=== PATIENT | female | born 1990 | race Caucasian/White ===

== ENCOUNTER → 2021-10-10 14:08 | Outpatient (CLI) | payer OTHER, MEDICAID, SELFPAY ==
[2021-10-10 15:13] LABS: Add Manual Diff / Slide Review NO; Basophils Absolute Auto 0 /uL (0-100); Basophils Percent Auto 0.4 % (0-2); Eosinophils Absolute Auto 500 /uL (0-450); Eosinophils Percent Auto 5.7 % (2-4); Hematocrit 38.2 % (36-46); Lymphocytes Absolute Auto 2300 /uL (1100-4500); Lymphocytes Percent Auto 28.9 % (25-40); Mean Corpuscular Hemoglobin 29.4 PG (26-34); Mean Corpuscular Volume 86.5 fL (80-100); Monocytes Absolute Auto 400 /uL (0-900); Monocytes Percent Auto 5.4 % (3-14); Neutrophils Absolute Auto 4700 /uL (1500-7000); Neutrophils Percent Auto 59.6 % (50-75); Platelet Count 269 X10^3/uL (150-400); Red Blood Cell Count 4.41 X10^6/uL (4.0-5.2); Red Cell Distribution Width 13.8 % (11.6-14.8); White Blood Cell Count 7.9 X10^3/uL (4.5-11.0)
[2021-10-10 16:08] LABS: TSH w/ Reflex to FT4 1.33 uIU/mL (0.47-4.68)
[2021-10-11 08:53] LABS: Varicella IgG Antibody 742 index (Immune >165)
[2021-10-13 04:18] LABS: HIV 1 & 2 Ab/Ag 4th Gen Combo NEGATIVE (NEGATIVE); Hep C Virus Ab w/Reflex Quant NEGATIVE s/c (NEGATIVE); Hepatitis B Surface Antigen NEGATIVE s/c (NEGATIVE)
[2021-10-30 15:19] LABS: RPR Screen Reactive
== END ==
PROVIDERS: Referring Provider Obstetrics & Gynecology; Visit Provider Obstetrics & Gynecology
DX: Z34.81 Encounter for supervision of other normal pregnancy, first trimester (principal); E03.9 Hypothyroidism, unspecified
CPT/HCPCS: 36415; 80055; 84443; 86787; 86803; 86850; 86900; 86901; 87389

== ENCOUNTER → 2021-11-06 16:43 | Outpatient (CLI) | payer OTHER, MEDICAID, SELFPAY ==
[2021-11-06 18:47] LABS: Appearance Urine UA CLOUDY; Bilirubin Urine UA NEGATIVE (NEGATIVE); Color Urine UA YELLOW; Glucose Urine UA NEGATIVE (Negative); Ketones Urine UA TRACE (NEGATIVE); Leukocyte Esterase Urine UA NEGATIVE (NEGATIVE); Nitrite Urine UA NEGATIVE (Negative); Occult Blood Urine UA NEGATIVE (Negative); Protein Urine UA 1+ (Negative); Specific Gravity Urine UA 1.025 (1.000-1.035)
== END ==
PROVIDERS: Referring Provider Obstetrics & Gynecology; Visit Provider Obstetrics & Gynecology
DX: Z34.81 Encounter for supervision of other normal pregnancy, first trimester (principal); Z3A.15 15 weeks gestation of pregnancy
CPT/HCPCS: 81003; 87086

== ENCOUNTER → 2021-12-09 12:35 | Outpatient (CLI) | payer OTHER, MEDICAID, SELFPAY ==
--- NOTE | 2021-12-09 12:36 | DI.US.S_ITS ---
PROCEDURE: US OB >= 14 WEEKS FETUS INDICATIONS: ANATOMY OUTSIDE/PRIOR DATING DATA: Last menstrual period (LMP): 07/22/2021. LMP-based estimated date of delivery (JASWANT): 04/28/2022. First dating scan (date and location): 09/19/2021. Estimated date of delivery (JASWANT) from first dating scan: 05/07/2022. TECHNIQUE: Real-time scanning was performed of the fetus, with image documentation and biometric measurements. Endovaginal scanning: No COMPARISON: None. FINDINGS: General: A single living intrauterine gestation is present. Presentation: Vertex. Placenta: Placental position is anterior , without previa. Amniotic fluid index: 17 cm, normal range is 5-24 cm. Single deepest vertical pocket is 4.8 cm. heart rate: 145 beats per minute. Maternal cervical canal: 3.8 cm long. Normal lower limit is 2.5 cm. biometrics: Biparietal diameter: 48 mm; 20 weeks 3 days Head circumference: 176 mm; 20 weeks 1 day Abdominal circumference: 152 mm; 20 weeks 3 days Femur length: 32 mm; 20 weeks 0 days Estimated gestational age by initial OB ultrasound: 20 weeks 1 day Composite gestational age from present scan: 20 weeks 2 days Estimated weight and percentile: 340 g, which is at the 50th percentile for gestational age Anatomic survey: Limited by maternal body habitus Neuro: Ventricles are non-dilated at less than 10 mm. Cisterna and cerebellum are not well seen. Nuchal skin fold: Not seen Face: Not well seen Spine: No evidence for spina bifida. Heart: Not well seen Diaphragm: Not well seen Stomach: Left-sided stomach is present. Kidneys: No hydronephrosis. Normal is less than 5 mm in 2nd trimester, less than 7 mm in 3rd trimester. Cord: 3-vessel cord has orthotopic insertion. Bladder: Normal in size. Extremities: All 4 extremities identified. IMPRESSION: 1. Single living intrauterine gestation. 2. Limited normal survey of anatomy. We strive to produce accurate, complete, and clear reports of imaging services. To assist us in improving patient care, this report was composed using standard report templates and voice recognition software. Therefore, it may contain abnormal punctuation, insertions and/or omissions. Occasional wrong-word or sound-alike substitutions may occur. Though we review the report and make efforts to correct it, we do recommend that the report be read carefully in proper context to recognize any text inaccuracies. Dictated by: Giulia Araujo M.D. on 12/09/2021 at 15:29 Approved by: Giulia Araujo M.D. on 12/09/2021 at 15:32
== END ==
PROVIDERS: Referring Provider Obstetrics & Gynecology; Visit Provider Obstetrics & Gynecology
DX: Z34.82 Encounter for supervision of other normal pregnancy, second trimester (principal); Z3A.20 20 weeks gestation of pregnancy
CPT/HCPCS: 76811

== ENCOUNTER → 2021-12-09 15:24 | Outpatient (CLI) | payer OTHER, MEDICAID, SELFPAY ==
[2021-12-09 20:44] LABS: Urine Chlamydia NOT DETECTED; Urine N gonorrhoeae NOT DETECTED
== END ==
PROVIDERS: Visit Provider Obstetrics & Gynecology
DX: Z34.82 Encounter for supervision of other normal pregnancy, second trimester (principal); Z3A.20 20 weeks gestation of pregnancy
CPT/HCPCS: 76811; 87491; 87591

== ENCOUNTER → 2022-01-01 17:15 | Outpatient (CLI) | payer OTHER, MEDICAID, SELFPAY ==
--- NOTE | 2022-01-01 17:19 | DI.US.S_ITS ---
PROCEDURE: US OB FOLLOW UP INDICATIONS: F/U Anatomy scan 12/09,multi structures not visualized OUTSIDE/PRIOR DATING DATA: Last menstrual period (LMP): 07/22/21. LMP-based estimated date of delivery (JASWANT): 04/28/22. First dating scan (date and location): 09/19/21. Estimated date of delivery (JASWANT) from first dating scan: 04/27/22. TECHNIQUE: Real-time scanning was performed of the fetus, with image documentation. Endovaginal scanning: Not performed COMPARISON: [facility], OB >= 14 WEEKS FETUS, 12/09/2021, 12:41. FINDINGS: A single living intrauterine gestation is present. Presentation: Cephalic. Placenta: Placental position is anterior, without previa. Amniotic fluid index: 16.7 cm, normal range is 5-24 cm. Single deepest vertical pocket is 5.1 cm. heart rate: 139 beats per minute. Maternal cervical canal: Closed and 4.8 cm long. Normal lower limit is 2.5 cm. 1.0 cm nabothian cyst seen in the cervix. Clinically estimated gestational age: 23 weeks, two days Given maternal body habitus, heart is still not well seen, however in intraventricular cardiac septum is identified on a single image. Cardiac outflow tracts were not seen. Intracranial structures are better seen, yet suboptimal. No gross abnormalities. orbits, nose, lips, and facial profile appear grossly normal. Diaphragm area is grossly normal. IMPRESSION: 1. Single living intrauterine . 2. The scan is slightly suboptimal due to technical factors, however given limitations, no gross anatomic abnormalities are identified. Notably, four cardiac chambers and cardiac outflow tracts were not identified. cardiac follow-up in the 3rd trimester is recommended to assess for any abnormalities. Dictated by: Mily Haider M.D. on 01/02/2022 at 8:46 Approved by: Mily Haider M.D. on 01/02/2022 at 9:00
== END ==
PROVIDERS: Referring Provider Obstetrics & Gynecology; Visit Provider Obstetrics & Gynecology
DX: Z34.92 Encounter for supervision of normal pregnancy, unspecified, second trimester (principal); Z3A.20 20 weeks gestation of pregnancy
CPT/HCPCS: 76816

== ENCOUNTER → 2022-01-19 10:11 | Outpatient (CLI) | payer OTHER, MEDICAID, SELFPAY ==
[2022-01-19 12:32] LABS: Hematocrit 33.2 % (36-46); Hemoglobin 11.3 g/dL (12.0-16.0)
[2022-01-19 13:04] LABS: GTT (PREG) 1 Hour PP 50gm Dose 88 mg/dL (76-139)
[2022-01-19 19:52] LABS: Free T4, Direct Thyroxine 0.76 ng/dL (0.78-2.19)
[2022-01-19 20:05] LABS: Thyroid Stimulating Hormone 1.55 uIU/mL (0.47-4.68)
== END ==
PROVIDERS: PCP Obstetrics & Gynecology; Referring Provider Physician Assistant Medical; Visit Provider Physician Assistant Medical
DX: Z34.82 Encounter for supervision of other normal pregnancy, second trimester (principal); E03.9 Hypothyroidism, unspecified; Z3A.26 26 weeks gestation of pregnancy
CPT/HCPCS: 36415; 82950; 84439; 84443; 85014; 85018

== ENCOUNTER → 2022-03-03 11:19 | Outpatient (CLI) | payer OTHER, MEDICAID, SELFPAY ==
[2022-03-03 13:01] LABS: Free T4, Direct Thyroxine 0.79 ng/dL (0.78-2.19)
[2022-03-03 13:15] LABS: Thyroid Stimulating Hormone 0.887 uIU/mL (0.47-4.68)
== END ==
PROVIDERS: Referring Provider Physician Assistant Medical; Visit Provider Physician Assistant Medical
DX: E03.9 Hypothyroidism, unspecified (principal)
CPT/HCPCS: 36415; 84439; 84443

== ENCOUNTER → 2022-03-31 12:22 | Outpatient (CLI) | payer OTHER, MEDICAID, SELFPAY ==
[2022-04-01 17:35] LABS: Strep Grp B PCR NEG for Grp B Strep
== END ==
PROVIDERS: Visit Provider Obstetrics & Gynecology
DX: Z34.83 Encounter for supervision of other normal pregnancy, third trimester (principal); Z3A.35 35 weeks gestation of pregnancy
CPT/HCPCS: 87653

== ENCOUNTER 2022-04-06 11:16 | Outpatient (CLI) | payer OTHER, MEDICAID, SELFPAY | END 2022-04-06 13:14 | disposition home or self-care (01) | LOC: LABOR 12:35 → OB 04-09 12:33 | PROVIDERS: Referring Provider Obstetrics & Gynecology; Visit Provider Obstetrics & Gynecology | DX: O36.8130 Decreased fetal movements, third trimester, not applicable or unspecified (principal); O47.03 False labor before 37 completed weeks of gestation, third trimester; Z3A.36 36 weeks gestation of pregnancy | CPT/HCPCS: 59025; 59050; G0378; G0379 ==

== ENCOUNTER 2022-04-23 05:48 | Inpatient (IN) | payer OTHER, MEDICAID, SELFPAY ==
[2022-04-23 06:35] LABS: Add Manual Diff / Slide Review NO; Basophils Absolute Auto 100 /uL (0-100); Eosinophils Absolute Auto 100 /uL (0-450); Hematocrit 32.7 % (36-46); Hemoglobin 10.9 g/dL (12.0-16.0); Lymphocytes Absolute Auto 2000 /uL (1100-4500); Lymphocytes Percent Auto 29.1 % (25-40); Mean Corpuscular HGB Conc 33.3 % (30-36); Mean Corpuscular Hemoglobin 26.7 PG (26-34); Mean Corpuscular Volume 80.1 fL (80-100); Monocytes Absolute Auto 600 /uL (0-900); Monocytes Percent Auto 8.2 % (3-14); Neutrophils Absolute Auto 4200 /uL (1500-7000); Neutrophils Percent Auto 59.7 % (50-75); Platelet Count 245 X10^3/uL (150-400); Red Blood Cell Count 4.08 X10^6/uL (4.0-5.2)
[2022-04-23 06:44] VITALS: BP 109/67
[2022-04-23 06:53] LABS: COVID19 -Nasal RAPID Negative (Negative)
[2022-04-23] MEDS: LACTATED RINGERS 1,000 ML 999 ML IV (07:30)
--- NOTE | 2022-04-23 08:30 | PM.OBHP.IH.1 ---
OB HPI Date/Time Date of admission: 04/23/22 Date Patient Seen: 04/23/22 Time Patient Seen: 08:30 History of Present Condition Chief complaint: INPT JASWANT Calculator Estimated Delivery Date Method Current WG Current Estimate 04/29/22 LMP (Certain) 39w 1d Estimated Gestational Age (weeks): 39+1 : 5 Para: 3 care: good care, initiated at week # (11), number of visits (9) and pounds weight gain (49) Dating criteria OB: LMP confirmed by 1st trimester US Ultrasounds: normal 1st trimester US and normal mid trimester US Obstetrical complications: none Medical complications OB: other (obesity) Preadmission Labs Last OB Lab Results: Blood Type A Positive 04/23/22 06:26 Antibody Screen Negative 04/23/22 06:26 Hematocrit 32.7 % (36-46) L 04/23/22 06:26 Hemoglobin 10.9 g/dL (12.0-16.0) L 04/23/22 06:26 Hepatitis B Surface Antigen Negative s/c (NEGATIVE) 10/10/21 14:21 Hepatitis C Antibody Negative s/c (NEGATIVE) 10/10/21 14:21 RPR Titer Additional Testing see below 10/10/21 14:21 Rubella Antibody 12.0 IU/mL (>15) L 10/10/21 14:21 Varicella-Zoster IgG Antibody 742 index (Immune >165) 10/10/21 14:21 Glucose 1 Hour 88 mg/dL (76-139) 01/19/22 11:15 Group B Streptococcus (PCR) Neg for grp b strep 03/31/22 12:22 -: Chlamydia screen: negative, Gonorrhea screen: negative and Urine: negative Genetic Screens: Cell-free DNA: Normal External Labs -: Urine: negative Prior (ies) Past Pregnancies Del. Date GA/Weeks Labor Lgth Wt Sex Route Outcome Anesthesia Place Delv Breastfeed Preg Comp Name 06/23/13 41 17 7 lb 1 oz Female live - full term [place] 2 months post-dates induction failure to progress Arel[place] 11/13/14 38 7 lb 13 oz Male live - full term [place] attempted, unable other [place] 07/19/20 39 7 lb 12 oz Female live - full term [place] 4 months other [place] 03/17/21 8 spontaneous Delivery Date: 11/13/14 Last Updated by: Beata Mckeon RN severe polyhydramnios; laryngomalacia Delivery Date: 07/19/20 Last Updated by: Beata Mckeon RN polyhydramnios Evaluation Evaluation Baseline heart rate: 135 Variability: Moderate (11-25) monitor accelerations: Present Monitor Decelerations: Absent Status: Category l PFSH Medical History (Updated 04/14/22 @ 11:51 by Cheng Canales MD) ADHD Carpal tunnel syndrome (~2017) Depression (~1999) Foot pain (~2020) Heavy menstrual period (~2020) History of polyhydramnios Painful menstrual periods (~2019) Polyhydramnios depression PTSD (post-traumatic stress disorder) (~1999) Restless leg syndrome Surgical History (Updated 12/09/21 @ 15:10 by Elizabeth Freed MD) Anesthesia History of surgery Previous section [place] teeth extracted Family History (Updated 11/05/21 @ 21:23 by Celia Richard) Father Diabetes mellitus Daughter Juvenile arthritis Son Hearing loss Nearsightedness Mother Depression Alcoholism Mental health problem Social History marital status: number of children: 3 household members: spouse, family ([id number] and his 3 children (moving out soon)) and children lives independently: Yes housing: house pets and animals: Yes (horses) education level: vocational (some college, certificate programs) occupational status: unemployed and previously employed current occupational exposures/hazards: Yes special sarah needs: No seatbelt use: always water heater temp set < 120 deg: Yes working smoke detector in home: Yes fire extinguisher in home: Yes carbon monox detector in home: Yes firearms in home: Yes firearms unloaded and locked: Yes do you feel safe at home: Yes Smoking Status: Former smoker second hand exposure: No alcohol intake: former substance use type: marijuana (in the past, not recently and not while ) during the past year weight has: other (wide fluctuations since last ) well-balanced diet: daily or most days daily servings fruits/ve or more times/day caffeine: Yes (soft drinks in small quantities, well within 200mg limit) Type(s) of exercise: walking additional social history: Difficulty other children. Would really like to meet w/ IBCLC prior to delivery and would like Rx for hospital grade breast pump that she can have when she goes home from hospital after delivery. Meds Home Medications and Allergies Home Medications Medication Instructions Recorded Confirmed Type prenat.vits,chet,wwv-mbuh-gdwnc 1 tab PO DAILY 09/19/21 03/31/22 History magnesium 200 mg tablet 200 mg PO DAILY 09/30/21 03/31/22 History ondansetron 4 mg disintegrating 4 mg PO Q6H PRN nausea and 10/14/21 03/31/22 Rx tablet vomiting #20 tabs hydroxyzine HCl 25 mg tablet 25 mg PO TID PRN anxiety #20 tabs 02/13/22 03/31/22 Rx azithromycin 250 mg tablet See Rx Instructions PO .COMPLEX #6 03/06/22 03/31/22 Rx tabs oxycodone 5 mg tablet 5 mg PO Q6H PRN pain #10 tabs 03/11/22 03/31/22 Rx levothyroxine 137 mcg tablet 137 mcg PO DAILY #30 tabs 03/16/22 03/31/22 Rx double electric breast pump 1 ea topical .prn #1 ea 03/31/22 Rx Allergies Allergy/AdvReac Type Severity Reaction Status Date / Time flaxseed Allergy Severe Anaphylaxis Verified 03/31/22 11:31 OB Exam Narrative Exam Narrative: Generally: Patient is sitting up in bed, no acute distress Lungs: Clear to auscultation bilaterally Cardiovascular: Regular rate and rhythm Fundal height: 42 cm Estimated weight: 8 lb Extremities: 1+ edema Objective Labs Result Diagrams: 04/23/22 06:26 Labs: Laboratory Results - last 24 hr 04/23/22 04/23/22 04/23/22 06:25 06:26 06:26 WBC 7.0 RBC 4.08 Hgb 10.9 L Hct 32.7 L MCV 80.1 MCH 26.7 MCHC 33.3 RDW 16.0 H Plt Count 245 Neut % (Auto) 59.7 Lymph % (Auto) 29.1 [place] % (Auto) 8.2 Eos % (Auto) 2.0 Baso % (Auto) 1.0 Neut # (Auto) 4200 Lymph # (Auto) 2000 [place] # (Auto) 600 Eos # (Auto) 100 Baso # (Auto) 100 SARS-CoV-2 (PCR) Negative Blood Type A Positive Antibody Screen Negative Assessment and Plan Assessment and Plan Assessment and Plan narrative: Assessment: 32-year-old 5 para 3 at 39-,1/7 weeks gestation with 3 prior sections Plan: Repeat low-transverse section The risks, benefits, and alternatives to the procedure were explained to the patient. The risks including bleeding, infection, injury to the bowel, bladder, or ureters. She understands these risks and agrees to proceed. A full par Q was held and consent form was signed. Patient has decided against bilateral salpingectomy Time Spent with Patient Total time spent with greater than 50% in coordination of care (as documented) at patient's floor/unit and/or counseling patient:: 15-24 minutes
--- NOTE | 2022-04-23 08:57 | PM.PREOP ---
Pre-operative Note COVID-19 COVID-19 status: Negative Result date/Date tested (Pos, Neg/Pending): 04/23/22 Criteria for continued procedure: Non-surgical alternatives not available or appropriate per current SOC Interval Note History & Physical reviewed/Exam performed by Physician: Yes Changes to H&P: No H&P completed within 30 days and has changed as indicated here:: 04/23/22
[2022-04-23] MEDS: CITRIC ACID/SODIUM CITRATE 15 ML SOLUTION 30 ML PO (09:50)
[2022-04-23] MEDS: CEFAZOLIN 3 GM IN 0.9 % NACL 3 GM/100 ML PLAST..BAG IV (10:35)
[2022-04-23] MEDS: ACETAMINOPHEN IV 1,000 MG/100 ML VIAL 400 MG IV (10:45)
--- NOTE | 2022-04-23 10:59 | SUR.OPER ---
Supine on Padded OR bed, head on pillow, safety belt at thigh, arms secured on padded arm boards at <90 degrees abduction. Bump under right buttock. Legs uncrossed with pillow under knees, gel pad to heels, tape over blanket to lower legs. Pt positioned per direction and supervision of Dr Freed.
--- NOTE | 2022-04-23 11:19 | SUR.OPER ---
Viable baby girl delivered at 1108. Cord blood vials x2 and placenta given to OB RN.
[2022-04-23 12:00] VITALS: BP 103/59; PULSE 78; RESP 33; TEMP 36.2; O2SAT 100
[2022-04-23 12:05] VITALS: BP 107/65; PULSE 90; RESP 16; TEMP 36.2; O2SAT 99
--- NOTE | 2022-04-23 12:08 | PM.OBCS.1 ---
Operative Date/Time/Diagnoses Date of procedure: 04/23/22 Time of procedure: 12:08 Pre-op diagnosis: 39-1/7 weeks gestation Previous section x3 Morbid obesity Post-op diagnosis: same Procedure & Clinicians Procedure: Repeat low-transverse section Lysis of adhesions Same procedure as scheduled: Yes Indications: 39-,1/7 weeks gestation Previous section x3 Surgeon: Elizabeth Freed Click Yes if Unassisted: No Billet Bed Operator: Aranza Ferrer Reason for Billet Bed Operator: The financial planning assistant was necessary to retract upon entry into the abdomen and uterus. Due to the patient's obesity, this required extra hands. She assisted with delivery of the infant with fundal pressure. She assisted with closure with retraction and clipping a suture. She closed the contralateral fascia. Anesthesia Type: Spinal (With Duramorph) Operative Notes Findings: Live female in the KULWINDER presentation Omental to anterior abdominal wall adhesions Normal tubes and ovaries Closure Type: primary Specimen(s): cord blood, cord pH and placenta Intraoperative meds administered: Duramorph, Ketorolac and Pitocin Applied: Catheter (To continuous drainage) Estimated Blood Loss (mL): 350 Blood products transfused: none Procedure in detail: The patient was taken to the operating room where she was placed in the seated position. Spinal anesthesia with Duramorph was administered. The patient was then placed in the dorsal supine position with a leftward tilt. She was prepped and draped in the usual sterile fashion. A timeout was performed. A Traxi drape was placed. After spinal analgesia was found to be adequate, a Pfannenstiel skin incision was made through the previous incision and carried through to the underlying layer fascia. The fascia was nicked in the midline, and the incision extended bilaterally with the Eid scissors. The superior aspect of the fascial incision was grasped with a Humboldt clamps, elevated, and the underlying rectus muscles dissected off sharply and bluntly. Attention was then turned to the inferior aspect of this incision which in a similar fashion was grasped with a Humboldt clamps, elevated, and the underlying rectus muscles dissected off sharply and bluntly. The rectus muscles were in the midline. The peritoneum was identified, grasped between 2 hemostats, and entered sharply with the Metzenbaum scissors. This incision was extended superiorly and inferiorly with good visualization of the bladder. Omental to anterior abdominal wall adhesions were taken down with the Bovie. An Lenin was placed into the incision. The vesicouterine peritoneum was identified, grasped with the pickup, and entered sharply with the Metzenbaum scissors. This incision was extended bilaterally, and the bladder flap was created digitally. The bladder blade was reinserted. The lower uterine segment was incised in a transverse fashion with the scalpel. Upon entering the amniotic sac there was a copious amount of clear amniotic fluid (4700cc). The infant's head was delivered with vacuum assistance. The nose and mouth were suctioned with bulb suction. The remainder of the body delivered without difficulty. The cord was double clamped and cut after 1 minute. The infant was handed off to waiting RN and RT. The placenta was delivered by expression. The uterus was cleared of all clots and debris. The uterine incision was repaired with #1 chromic in a running interlocking fashion, and a second layer the same suture was used for an imbricating layer. A [id number]-rp-[id number] suture was placed on the right edge of the incision due to some oozing. Hemostasis was achieved. The tubes and ovaries were examined and were found to be normal. The gutters were cleared of all clots and debris. The Lenin was removed from the incision. The bladder flap was reapproximated with 2-0 Vicryl. The fascia was reapproximated using 0 Vicryl in a running fashion. The subcutaneous layer was copiously irrigated with warm normal saline. 5 simple interrupted sutures of 3-0 Vicryl were placed to reapproximate the deep subcutaneous layer. Five simple interrupted sutures with 3-0 Vicryl were placed to reapproximate the superficial subcutaneous layer. The skin was closed with 4-0 Monocryl in a subcuticular fashion. Steri-Strips were placed. An Aquacel dressing was placed. The uterus was expressed of a small amount of old blood. Sponge, lap, and instrument counts were correct x-2. The patient tolerated the procedure well, and was taken to PACU in stable condition. Complications: none [place] Baby 1: Gender: Female Presentation: vertex Position: Right Occiput Anterior Placental Delivery Description: Expressed Cord Vessel Description: 3 Vessels score (1 min): 7 score (5 min): 9 Post-operative Condition: stable Disposition: PACU Aftercare: routine postop
[2022-04-23 12:11] VITALS: PULSE 110; RESP 16; TEMP 36.6; O2SAT 99
[2022-04-23 12:12] VITALS: BP 98/47
[2022-04-23] MEDS: LEVOTHYROXINE 137 MCG TABLET PO (20:28)
[2022-04-23] MEDS: ACETAMINOPHEN 325 MG TABLET 650 MG PO (20:28)
[2022-04-23] MEDS: KETOROLAC 30 MG/ML VIAL IV (23:49)
[2022-04-24] MEDS: ACETAMINOPHEN 325 MG TABLET 650 MG PO ×2 (02:27→08:33)
[2022-04-24] MEDS: KETOROLAC 30 MG/ML VIAL IV (05:36)
[2022-04-24] MEDS: LEVOTHYROXINE 137 MCG TABLET PO (05:46)
[2022-04-24 06:59] LABS: Hematocrit 26.2 % (36-46); Hemoglobin 8.5 g/dL (12.0-16.0)
[2022-04-24] MEDS: LANOLIN OINT 7 GM 1 APPLIC TOP (08:34)
[2022-04-24] MEDS: DOCUSATE 100 MG CAPSULE PO (08:34)
[2022-04-24] MEDS: PRENATAL VIT,CALC/IRON/FOLIC 1 TABLET 1 TAB PO (08:34)
[2022-04-24] MEDS: IBUPROFEN 600 MG TABLET PO (11:55)
[2022-04-24 13:52] VITALS: BP 106/57; PULSE 90; RESP 18; TEMP 36.8
== END 2022-04-24 13:52 | disposition home or self-care (01) | DRG 540 ==
PROVIDERS: Admitting Provider Obstetrics & Gynecology; Referring Provider Obstetrics & Gynecology; Visit Provider Obstetrics & Gynecology
PROC: 10D00Z1 Extraction of Products of Conception, Low, Open Approach (ICD-10-PCS; CPT 59514; principal; 2022-04-23 07:45)
DX: O34.211 Maternal care for low transverse scar from previous cesarean delivery (principal); Z3A.39 39 weeks gestation of pregnancy; Z37.0 Single live birth; O99.214 Obesity complicating childbirth; E66.01 Morbid (severe) obesity due to excess calories; O99.62 Diseases of the digestive system complicating childbirth; K66.0 Peritoneal adhesions (postprocedural) (postinfection); Z20.822 Contact with and (suspected) exposure to COVID-19
CPT/HCPCS: 36415; 59050; 59514; 85014; 85018; 85025; 86850; 86900; 86901; 87635; C9803; J0131; J0690; J1885; J2274; J2590; J2704; J3010

== ENCOUNTER 2022-04-25 16:25 | Outpatient (CLI) | payer OTHER, MEDICAID, SELFPAY ==
[2022-04-25 16:30] VITALS: BP 132/62; PULSE 70; RESP 16; TEMP 37.2; O2SAT 98
[2022-04-25] MEDS: ACETAMINOPHEN IV 1,000 MG/100 ML VIAL 400 MG IV (17:00)
--- NOTE | 2022-04-25 17:07 | P.PCN_ITS ---
Procedures Date/Time Date of procedure: 04/25/22 Time of procedure: 16:30 General Procedure description: EPIDURAL BLOOD PATCH HPI: POD#2 CSection, c/o MOHAMUD. Onset roughly 24h after surgery, rated 8/10 when upright walking or sitting, and 0/10 when lying flat. No associated visual or auditory changes, denies F/C/N/V, denies rash. No improvement with acetaminophen or ibuprofen, fluids and caffeine. Pt reports history of PDPHA that resolved with epidural blood patch with previous CS. Review of records revealed atraumatic SAB with 5 22g Quinke, as the regular 3.5 25g Bethanie was insufficient for the depth required to reach the in trathecal space. Procedure: VS WNL Pt seated, chloroprep, sterile drape. Small needle aedbayo noted from 2 days ago roughly L3/4-4/5. Licocaine local approx 2cc into tissue and skin wheal. 18g 5 Touhy inserted with clean ELVER to saline at 9cm. Blood drawn by RN using sterile technique (chloroprep for placement, all hubs cleaned prior to transfer to anesthesiologist) 15mL blood slowly injected into the epidural space until pt reported mild low back pain. Pt positioned herself supine and was instructed to lay supine for 1 hour. After procedure, pt reports mild low back pain, improving with 1000mg IV acetaminophen, and improved MOHAMUD. VSS. d/c home with limited activity x 24h, no lifting > 10lbs. f/u precautions with worsening pain, fever, chills
[2022-04-25 17:13] VITALS: BP 117/82; PULSE 100; RESP 20; O2SAT 98
[2022-04-25] MEDS: LACTATED RINGERS 1,000 ML 1000 ML IV (17:14)
--- NOTE | 2022-04-25 17:27 | SUR.PREOP ---
Patient tolerated blood patch by Dr Corado without difficulty; patient to labor and delivery for one hour of monitoring and then discharge home. Report given to L&D nurses. with patient.
== END 2022-04-25 17:27 | disposition home or self-care (01) ==
PROVIDERS: Referring Provider Anesthesiology; Visit Provider Anesthesiology
PROC: 3E0R3GC Introduction of Other Therapeutic Substance into Spinal Canal, Percutaneous Approach (ICD-10-PCS; CPT 62273; principal; 2022-04-25 17:15)
DX: G97.1 Other reaction to spinal and lumbar puncture (principal); R51.0 Headache with orthostatic component, not elsewhere classified
CPT/HCPCS: 62273; J0131

== ENCOUNTER → 2022-06-04 15:33 | Outpatient (CLI) | payer OTHER, MEDICAID, SELFPAY ==
[2022-06-04 17:41] LABS: Free T4, Direct Thyroxine 1.47 ng/dL (0.78-2.19)
[2022-06-04 18:30] LABS: Thyroid Stimulating Hormone < 0.015 uIU/mL (0.47-4.68)
== END ==
PROVIDERS: Referring Provider Obstetrics & Gynecology; Visit Provider Obstetrics & Gynecology
DX: E03.9 Hypothyroidism, unspecified (principal)
CPT/HCPCS: 36415; 84439; 84443

== ENCOUNTER 2022-11-30 08:32 | Day surgery (SDC) | payer OTHER, MEDICAID, SELFPAY ==
[2022-11-23 11:50] VITALS: BMI 44.9
--- NOTE | 2022-11-30 | PATH_ITS ---
[facility] Accession Number: [id number] No. of containers..01 Tissue . 01 Material submitted: . endometrium - ENDOMETRIAL CURETTINGS . 01 Diagnosis: Endometrium, Curettage: Proliferative endometrium. Negative for hyperplasia and neoplasia. MRV 12/11/2022 1525 Local . 01 Electronically signed: . Santa Patel MD, Pathologist NPI- [id number] . 01 Gross description: . ENDOMETRIAL CURETTINGS: Received in formalin are minute fragments of mucoid and hemorrhagic material measuring 0.6 x 0.6 x 0.3 cm in aggregate. Submitted in toto in 1 cassette. /KARL 12/03/2022 2225 Local . 01 Pathologist provided ICD-10: N94.9 . 01 CPT . 908268 Specimen Comment: A courtesy copy of this report has been sent to [phone] Performed at: 01 [facility] [address] [place] [address], [place], [place] [id number] MD Shailesh Juarez MD Phone: [phone]
[2022-11-30 08:52] VITALS: BMI 48.2
[2022-11-30 09:16] VITALS: BP 107/71; PULSE 76; RESP 15; TEMP 36.2; O2SAT 99
--- NOTE | 2022-11-30 09:28 | P.HPOB_ITS ---
History of Present Illness History of Present Illness Reason for admission: vaginal bleeding (Heavy) Narrative: Anca Vasquez is a 32 year old female 5 para 4 who presents for a D&C hysteroscopy and NovaSure endometrial ablation due to menorrhagia [facility] Medical History (Updated 10/14/22 @ 13:17 by Elizabeth Freed MD) ADHD Carpal tunnel syndrome (~2017) Depression (~1999) Foot pain (~2020) Heavy menstrual period (~2020) History of polyhydramnios Low back pain Painful menstrual periods (~2019) Polyhydramnios depression PTSD (post-traumatic stress disorder) (~1999) Restless leg syndrome Surgical History (Updated 12/09/21 @ 15:10 by Elizabeth Freed MD) Anesthesia History of surgery Previous section [place] teeth extracted Family History (Updated 11/05/21 @ 21:23 by Celia Richard) Father Diabetes mellitus Daughter Juvenile arthritis Son Hearing loss Nearsightedness Mother Depression Alcoholism Mental health problem Social History marital status: number of children: 3 household members: spouse, family and children lives independently: Yes housing: house pets and animals: Yes (horses) education level: vocational (some college, certificate programs) occupational status: unemployed and previously employed current occupational exposures/hazards: Yes special sarah needs: No seatbelt use: always water heater temp set < 120 deg: Yes working smoke detector in home: Yes fire extinguisher in home: Yes carbon monox detector in home: Yes firearms in home: Yes firearms unloaded and locked: Yes do you feel safe at home: Yes Smoking Status: Former smoker second hand exposure: No alcohol intake: former substance use type: marijuana (in the past, not recently and not while ) during the past year weight has: other (wide fluctuations since last ) well-balanced diet: daily or most days daily servings fruits/ve or more times/day caffeine: Yes (soft drinks in small quantities, well within 200mg limit) Type(s) of exercise: walking additional social history: Difficulty other children. Would really like to meet w/ IBCLC prior to delivery and would like Rx for hospital grade breast pump that she can have when she goes home from hospital after delivery. Meds Home Medications and Allergies Home Medications Medication Instructions Recorded Confirmed Type levothyroxine 137 mcg tablet 137 mcg PO DAILY #30 tabs 03/16/22 11/30/22 Rx double electric breast pump 1 ea topical .prn #1 ea 03/31/22 09/03/22 Rx ibuprofen 800 mg tablet 800 mg PO TID #90 tabs 09/03/22 11/30/22 Rx lidocaine 5 % topical patch 1 patch transdermal DAILY PRN Pain 09/03/22 11/30/22 History (Scale Score 1-3) Allergies Allergy/AdvReac Type Severity Reaction Status Date / Time flaxseed Allergy Severe Anaphylaxis Verified 11/30/22 08:48 prednisone AdvReac Mild Hot Flashes Verified 11/30/22 08:48 Exam Narrative Exam Narrative: HEENT: No thyromegaly, no anterior cervical or supraclavicular lymphadenopathy. Lungs:Clear to auscultation bilaterally, no wheezes. Cardiovascular: Regular rate and rhythm, no murmurs, rubs, or gallops. Abdomen: Well-healed Pfannenstiel scars. No hepatosplenomegaly. No masses palpable. External genitalia: Normal Vagina: Normal Cervix: Normal Bimanual exam: 7 Week size anteverted uterus. Mobile. Extremities: No edema Assessment & Plan Assessment & Plan narrative: Assessment: 32-year-old 5 para 4 with menorrhagia Plan: D&C hysteroscopy with NovaSure endometrial ablation The risks, benefits, and alternatives to the procedure were explained to the patient. The risks including bleeding, infection, and uterine perforation. She understands these risks and agrees to proceed. A full par Q was held and consent form was signed. Time Spent With Patient Time with patient: less than 30 minutes
--- NOTE | 2022-11-30 09:30 | PM.PREOP ---
Pre-operative Note COVID-19 Criteria for continued procedure: Non-surgical alternatives not available or appropriate per current SOC Interval Note History & Physical reviewed/Exam performed by Physician: Yes Changes to H&P: No H&P completed within 30 days and has changed as indicated here:: 11/30/22
[2022-11-30] MEDS: LACTATED RINGERS 1,000 ML 100 ML IV (09:32)
[2022-11-30] MEDS: SCOPOLAMINE 1 PATCH TOP (09:35)
[2022-11-30 09:36] VITALS: BMI 48.2
--- NOTE | 2022-11-30 09:52 | SUR.OPER ---
Lithotomy on padded OR bed, head on pillow, arms secured on padded arm boards at <90 degrees abduction. Legs secured in padded yellow fins stirrups.
[2022-11-30 10:21] VITALS: BP 118/71; PULSE 72; RESP 16; TEMP 36.4; O2SAT 100
[2022-11-30 10:27] VITALS: BP 128/85; PULSE 89; RESP 14; O2SAT 96
--- NOTE | 2022-11-30 10:28 | PM.GYNOP.1 ---
Operative Date/Time/Diagnoses Date of procedure: 11/30/22 Time of procedure: 10:28 Pre-op diagnosis: Menorrhagia Post-op diagnosis: same Procedure & Clinicians Procedure: Procedures Operation Date: 11/30/22 09:45 Actual Procedure Side Surgeon p D&C Hysteroscopy w/Novasure Ablation Elizabeth Freed MD Indications: Menorrhagia Surgeon: Elizabeth Freed Anesthesia Type: General (LMA) Operative Notes Findings: 7 wk size anteverted uterus Both Fallopian tube ostia observed Thickened endometrial lining Closure Type: not applicable Specimen(s): endometrial curettings Estimated blood loss (mL): 10 Blood products transfused: none Procedure in detail: After informed consent was obtained, the patient was taken to the operating room where she was placed in the dorsal supine position. After adequate LMA general anesthesia was achieved, she was placed in the dorsal lithotomy position, and prepped and draped in the usual sterile fashion. A time-out was performed. A bivalve speculum was placed into the vagina and the anterior lip of the cervix was grasped with a single-tooth tenaculum. The cervical os was sequentially dilated to the #9 Hegar dilator. The hysteroscope passed easily into the endometrial cavity. Both fallopian tube ostia were observed. There was a thickened lining. The hysteroscope was removed. Sharp curettage was performed yielding a large amount of endometrial curettings. The uterus was measured from the internal os of the fundus and was set at 4.5 cm. This was set on the generator and the NovaSure catheter. The NovaSure catheter passed easily into the endometrial cavity and was opened. The width was 2.8 cm. This indicated a power of 69 w. The cervix was capped, the cavity assessment was performed and passed. The cycle was initiated and lasted 1 minute and 3 seconds. The cervix was uncapped common the NovaSure catheter was closed and removed from the uterus. The single-tooth tenaculum was removed from the anterior lip of the cervix. The bivalve speculum was removed from the vagina. Sponge, lap, and instrument counts were correct x2. The patient tolerated the procedure well, and was taken to PACU in stable condition. Complications: none Post-operative Condition: stable Disposition: PACU Plan for aftercare: Home after recovery
[2022-11-30 10:32] VITALS: BP 133/78; PULSE 86; RESP 12; O2SAT 97
[2022-11-30 10:47] VITALS: BP 113/68; PULSE 74; RESP 14; TEMP 36.3; O2SAT 96
[2022-11-30] MEDS: OXYCODONE IR 5 MG TABLET PO (10:52)
[2022-11-30] MEDS: ONDANSETRON 4 MG/2 ML INJ IV (10:52)
== END 2022-11-30 11:16 | disposition home or self-care (01) ==
PROVIDERS: Referring Provider Obstetrics & Gynecology; Visit Provider Obstetrics & Gynecology
PROC: 0U5B8ZZ Destruction of Endometrium, Via Natural or Artificial Opening Endoscopic (ICD-10-PCS; CPT 58563; principal; 2022-11-30 09:45)
DX: N92.0 Excessive and frequent menstruation with regular cycle (principal); N94.6 Dysmenorrhea, unspecified
CPT/HCPCS: 58563; 81025; J1100; J1885; J2405; J2704; J3010

== ENCOUNTER → 2023-02-11 08:55 | Outpatient (CLI) | payer OTHER, MEDICAID, SELFPAY ==
[2023-02-11 10:23] LABS: Glucose 81 mg/dL (70-100)
[2023-02-11 10:32] LABS: Free T4, Direct Thyroxine 1.27 ng/dL (0.78-2.19)
[2023-02-11 10:46] LABS: Thyroid Stimulating Hormone 0.342 uIU/mL (0.47-4.68)
[2023-02-12 09:57] LABS: Insulin Level Total 30.4 uIU/mL (2.6-24.9)
[2023-02-19 09:21] LABS: Percent Free Testosterone 1.81 % (0.50-2.80); Testosterone Free 0.84 ng/dL (0.10-0.85); Testosterone Total 46.3 ng/dL (10.0-55.0)
== END ==
PROVIDERS: Referring Provider Obstetrics & Gynecology; Visit Provider Obstetrics & Gynecology
DX: E03.9 Hypothyroidism, unspecified (principal); E28.2 Polycystic ovarian syndrome
CPT/HCPCS: 36415; 82947; 83525; 84402; 84403; 84439; 84443

== ENCOUNTER 2023-06-17 12:45 | Day surgery (SDC) | payer OTHER, MEDICAID, SELFPAY ==
[2023-06-16 15:00] VITALS: BMI 47.4
[2023-06-17] VITALS (12 sets, daily range): BP systolic 103–120; BP diastolic 55–80; PULSE 93–100; RESP 18–22; TEMP 35.5–36.2; O2SAT 95–100; BMI 46.5
--- NOTE | 2023-06-17 | PATH_ITS ---
[facility] Accession Number: [id number] No. of containers..01 Tissue . 01 Material submitted: . uterus - UTERUS, BILATERAL TUBES, BILATERAL OVARIES . 01 Diagnosis: A. UTERUS, BILATERAL FALLOPIAN TUBES, BILATERAL OVARIES, SUPRACERVICAL HYSTERECTOMY AND BILATERAL SALPINGO-OOPHORECTOMY: Secretory benign endometrium with focal breakdown. Serosa and myometrium within normal limits. Bilateral fallopian tubes with features of hydrosalpinx, mild acute salpingitis, and benign paratubal cysts. Bilateral ovaries with numerous benign physiologic cysts (including a corpus luteal cyst). No evidence of malignancy. [facility] 06/23/2023 1448 Local . 01 Electronically signed: . Deirdre Bird MD, Pathologist NPI- [id number] . 01 Gross description: . The specimen is received in formalin, labeled with the patient's name, , and uterus, bilateral tubes, and bilateral ovaries, and consists of a fragmented uterus weighing 64 g and aggregating to 9.4 x 8.7 x 3.5 cm with attached tube (6.2 x 0.6 cm), attached ovary (9 g, 3.3 x 3.0 x 1.6 cm), detached tube (4.5 x 0.5 cm), detached ovary (16 g, 4.5 x 4.2 x 1.9 cm), with no cervix identified. The serosa is parker and smooth with no evidence of hemorrhage or adhesion. The presumed endometrium is parker to brown and denuded with no lesions identified. The myometrium is parker and trabecular with no nodules identified. . The attached fallopian tube has violaceous, smooth serosa with no cystic structures identified. Sectioning reveals an unremarkable stellate lumen. The attached ovary has a parker, cerebriform external surface. Sectioning reveals multiple unilocular, thin-walled cystic structures ranging from 0.2 cm to 0.8 cm in greatest dimension filled with parker, serous fluid and no excrescences identified. The remaining cut surface is physiologic and unremarkable. . The detached fallopian tube has parker, wrinkled serosa with multiple cystic structures measuring up to 0.8 cm in greatest dimension filled with clear serous fluid. Sectioning reveals an unremarkable stellate lumen. The detached ovary has a parker, cerebriform external surface. Sectioning reveals multiple unilocular cystic structure ranging from 0.4 cm to 1.3 cm in greatest dimension with no excrescences identified. The contents vary from parker and serous to yellow and gelatinous. The remaining cut surface is physiologic and unremarkable. . Folding Rules Printing Machine Operator sections are submitted as follows: A1: Presumed endometrium. A2: Serosa. A3: Attached fallopian tube to include one-half of bisected fimbriae and cross sections. A4-A5: Attached ovary with cysts. A6: Detached fallopian tube to include one-half of bisected fimbriae and cross sections. A7-A9: Detached ovary with cysts. ([id number]) /FRR 06/19/2023 1741 Local . 01 Pathologist provided ICD-10: N93.9 . 01 CPT . 410201 Specimen Comment: A courtesy copy of this report has been sent to [phone] Performed at: 01 [facility] [address] [place] [address], [place], [place] [id number] MD Shailesh Juarez MD Phone: [phone]
[2023-06-17] MEDS: SCOPOLAMINE 1 PATCH TOP (13:35)
[2023-06-17] MEDS: LACTATED RINGERS 1,000 ML 42 ML IV ×2 (13:38→17:11)
--- NOTE | 2023-06-17 15:20 | PM.GYNOP.1 ---
Operative Date/Time/Diagnoses Date of procedure: 06/17/23 Post-op diagnosis: same Procedure & Clinicians Procedure: Procedures Operation Date: 06/17/23 14:30 <No data on this case meets the specified criteria>
--- NOTE | 2023-06-17 15:53 | P.OP.PRE_ITS ---
Pre-operative Note COVID-19 COVID-19 status: Not tested Interval Note History & Physical reviewed/Exam performed by Physician: Yes Changes to H&P: No H&P completed within 30 days and has changed as indicated here:: Patient counse led regarding alternatives risks, benefits potential complications associated with laparoscopic supracervical hysterectomy salpingo oophorectomy. Patient is also aware that due to her previous sections, open hysterectomy may be necessary due to adhesions or other abnormalities. In addition the patient understands that removal of both tubes and ovaries will not fully address all of the metabolic issues associated with polycystic ovarian syndrome and removal of both ovaries will result in surgical menopause necessitating use of hormone replacement therapy. Full understanding of the above, a written consent was executed, signed, and witnessed this date.
[2023-06-17] MEDS: CEFAZOLIN VIAL 3 GM in SODIUM CHLORIDE 0.9% 100 ML IV (16:10)
[2023-06-17] MEDS: ACETAMINOPHEN IV 1,000 MG/100 ML VIAL 400 MG IV (16:15)
--- NOTE | 2023-06-17 16:34 | SUR.OPER ---
Lithotomy on padded OR bed. [place]on Pad Positioner under torso. Head on pillow, arms padded and tucked at sides. Legs secured in padded yellow fins stirrups.
[2023-06-17] MEDS: BUPIVACAINE 0.5% (PF) 30 ML, EPINEPHrine 0.15 MG INJ (16:50)
[2023-06-17] MEDS: ROPIVACAINE 0.2% PF 2 MG/ML 10ML AMP 20 ML INJ (16:53)
--- NOTE | 2023-06-17 18:26 | P.OP_ITS ---
Operative Date/Time/Diagnoses Date of procedure: 06/17/23 Time of procedure: 15:50 Pre-op diagnosis: Menorrhagia Failed endometrial ablation Polycystic ovarian syndrome Post-op diagnosis: other (THEO; Ventral hernia) Procedure & Clinicians Procedure: Procedures Operation Date: 06/17/23 14:30 Actual Procedure Side Surgeon p Laparoscopic Supracervical Hysterectomy, bilateral salpingo-oophorectomy Cheng Canales MD Indications: Patient is a 33-year-old 5 para 4 who presents for a laparoscopic supracervical hysterectomy with bilateral salpingo-oophorectomy. This is being done to a history of polycystic ovaries, abnormal uterine bleeding, and a failed endometrial ablation. Surgeon: Cheng Canales Test Engine Operator: Faviola Gonzalez Anesthesia Type: General Operative Notes Findings: The uterus is normal in size and shape. The anterior cul-de-sac is involved with dense adhesions due to the patient's prior sections. Both fallopian tubes appeared to be normal. Both ovaries appear to be slightly enlarged and consistent with her diagnosis of polycystic ovarian syndrome. The omentum is involved with adhesions to the anterior abdominal wall and there is a large ventral hernia immediately inferior to the umbilicus extending from the right side of the midline upwards and over to the left axillary line. Omental tissue is adherent in the hernia defect and rectus abdominis fibers could easily be seen in several areas. Closure Type: primary Specimen(s): left tube & ovary, right tube & ovary and uterus Applied: catheter Estimated blood loss (mL): 100 Blood products transfused: none Procedure in detail: With the patient under satisfactory general anesthesia in the modified dorsal lithotomy position, the vagina, perineum, and abdomen were prepped and draped in the usual manner for laparoscopic supracervical hysterectomy. A pre-surgical safety time-out was then taken in accordance with [facility] OR protocols. A bivalve speculum was inserted vagina, the cervix grasped with a single-tooth tenaculum and dilated with Hegar dilators so as to be able to place a Zumi manipulator within the endometrial cavity. The inferior aspect of the umbilicus was then infiltrated 0.5% Marcaine with epinephrine and a 2.5 cm vertical incision was made and the anterior fascia was identified immediately inferior to the umbilicus. A transverse incision of the fascia was then made with Metzenbaum scissors and stay sutures of 0 Vicryl were placed at each angle. Metzenbaum scissors were then used to gently enter the peritoneal cavity and the Gregory cannula was then introduced into the abdominal cavity. The presence of the sleeve in the abdomen was confirmed by laparoscopic inspection. Second and 3rd 5 mm ports were then placed in the left and right mid quadrants after infiltration of the skin and subcutaneous tissues with 0.5% Marcaine with epinephrine.. Pelvis and abdomen were then inspected using a 3 puncture technique with the findings as noted above. The omental drape adherent to the ventral hernia defect were then taken down with a PowerSeal device so as to provide adequate visualization of the pelvis. The left fallopian tube was grasped at its distal most portion and infundibulopelvic ligament on the left was then and divided with the PowerSeal bipolar device. The dissection was then carried mesosalpinx to level of the cornua and then the round ligament on the left was coagulated and divided with the PowerSeal. The dissection was then taken down to the level of the endocervix where the ascending uterine vessels were coagulated and divided. Bladder flap was initiated from the left and dissection was carried across the midline to the right side. Attention was then turned to the right side where the distal right tube was grasped with a grasping forceps and the infundibulopelvic ligament on the right was coagulated and divided with the PowerSeal. The dissection was then carried across the mesosalpinx to the cornua, downward across the round ligament to the level of the endocervical canal where vessels were coagulated and divided and the bladder flap completed. Bladder was advanced, the Zumi manipulator removed, and a Chloé loop was used to amputate the corpus. Following amputation there was no bleeding encountered. The cervical stump was then coagulated with monopolar current and the endocervical canal was coagulated in a similar manner. A 4 cm transverse suprapubic incision was then made through which a 12 mm trocar and sleeve was introduced into the abdominal cavity. An Endo-Catch was used to capture the uterine corpus and brought up to the suprapubic incision. S retractors were used to expose the fascia which was incised bilaterally so as to expand the fascial incision and once the incision had been expanded, an Lenin retractor was placed in the retrieval bag. Sharp morcellation of the uterine corpus was then carried out and the containment bag and submitted as an aggregate specimen. The Lenin retractor was then removed and closure of the fascial defect was accomplished with 0 Vicryl in a running stitch. The abdomen was then reinsufflated the pelvis thoroughly inspected. There was no points of bleeding identified and the ureters were seen to be peristalsing freely on both sides. 20 cc of ropivacaine was then placed in the pelvis and the pneumoperitoneum was vented. The laparoscopic sleeves were then removed after venting of the pneumoperitoneum and all skin incisions were closed with 4-0 Monocryl using inverted interrupted stitches. Skin glue was then applied followed by placement of appropriate dressings on all incisions. Patient was then awakened from anesthesia and transferred to the PACU for a period of observation and recovery after having tolerated the procedure well. Complications: none Post-operative Condition: stable Disposition: PACU Plan for aftercare: Routine postoperative care.
[2023-06-17] MEDS: OXYCODONE IR 5 MG TABLET PO (18:41)
[2023-06-17] MEDS: KETOROLAC 30 MG/ML VIAL IV (20:04)
[2023-06-17] MEDS: ONDANSETRON 4 MG/2 ML INJ IV (20:04)
[2023-06-17] MEDS: DOCUSATE 100 MG CAPSULE 200 MG PO (20:05)
[2023-06-17] MEDS: OXYCODONE IR 5 MG TABLET 10 MG PO (20:05)
[2023-06-17] MEDS: LACTATED RINGERS 1,000 ML 100 ML IV (20:07)
[2023-06-18] MEDS: OXYCODONE IR 5 MG TABLET 10 MG PO ×2 (00:43→09:09)
[2023-06-18] MEDS: KETOROLAC 30 MG/ML VIAL IV ×2 (00:44→07:07)
[2023-06-18] MEDS: ACETAMINOPHEN 325 MG TABLET 650 MG PO ×2 (00:44→05:31)
[2023-06-18] MEDS: ONDANSETRON 4 MG/2 ML INJ IV (00:46)
[2023-06-18] MEDS: LACTATED RINGERS 1,000 ML 100 ML IV (01:08)
[2023-06-18 05:26] VITALS: BP 98/62; PULSE 107; RESP 22; TEMP 36.2; O2SAT 99
[2023-06-18 07:04] LABS: Add Manual Diff / Slide Review NO; Basophils Absolute Auto 0 /uL (0-100); Basophils Percent Auto 0.1 % (0-2); Eosinophils Absolute Auto 0 /uL (0-450); Hematocrit 38.7 % (36-46); Hemoglobin 13.2 g/dL (12.0-16.0); Lymphocytes Absolute Auto 1000 /uL (1100-4500); Lymphocytes Percent Auto 13.1 % (25-40); Mean Corpuscular Hemoglobin 27.5 PG (26-34); Mean Corpuscular Volume 81.1 fL (80-100); Monocytes Absolute Auto 300 /uL (0-900); Monocytes Percent Auto 3.6 % (3-14); Neutrophils Absolute Auto 6500 /uL (1500-7000); Neutrophils Percent Auto 83.2 % (50-75); Platelet Count 307 X10^3/uL (150-400); Red Blood Cell Count 4.78 X10^6/uL (4.0-5.2); Red Cell Distribution Width 15.4 % (11.6-14.8); White Blood Cell Count 7.8 X10^3/uL (4.5-11.0)
[2023-06-18] MEDS: LEVOTHYROXINE 137 MCG TABLET PO (07:07)
[2023-06-18 07:28] LABS: BUN Creatinine Ratio 11.5 (6-22); Blood Urea Nitrogen 7 mg/dL (7-17); Calcium 9.3 mg/dL (8.4-10.2); Carbon Dioxide 26 mmol/L (22-32); Chloride 108 mmol/L (98-107); Estimated Glomerular Filt Rate > 60 mL/min (>60); Glucose 113 mg/dL (70-100); HEMOLYSIS < 15 (0-50); Potassium 4.2 mmol/L (3.4-5.1); Sodium 137 mmol/L (137-145)
[2023-06-18 07:55] VITALS: BP 105/66; PULSE 98; RESP 22; TEMP 36.1; O2SAT 98
--- NOTE | 2023-06-18 08:28 | P.DS_ITS ---
History of Present Illness History of Present Illness Date Patient Seen: 06/18/23 Time Patient Seen: 08:31 Chief complaint: OPB Narrative: Anca is a 33-year-old 5 para 4 who presents for a laparoscopic supracervical hysterectomy with bilateral salpingo-oophorectomy. This is being done to a history of polycystic ovaries, abnormal uterine bleeding, and a failed endometrial ablation. Discharge Providers Provider Date of admission: 06/17/2023 Discharge Date: 06/18/23 Primary care physician: Ewa Flowers PA-C Discharge provider: Cheng Canales MD Summary Hospital Course Discharge Diagnosis: Menorrhagia Failed endometrial ablation Polycystic ovarian syndrome Premenstrual dysphoric disorder Status post laparoscopic supracervical hysterectomy with bilateral salpingo oophorectomy Hospital Course: Anca was admitted on 06/17/2023 and underwent an uneventful laparoscopic supracervical hysterectomy with bilateral salpingo oophorectomy. Full details of the procedure well summarized on my operative note of that date. Following her surgery the patient has done extremely well with prompt return of bowel and bladder function, she is ambulating independently, tolerating regular diet, and her pain is well controlled with oral pain medications. She will be discharged at this time to home in an afebrile normotensive condition after counseling regarding precautionary symptoms, limitations of activity, medications, and plans for follow-up which will be in 2 weeks. Medications at discharge will include resumption of all preadmission medications as well as oxycodone 5 mg p.o. Q 4 hours as needed for pain, dispense 20 with no refills, Cipro 500 mg p.o. b.i.d. x5 days for UTI prophylaxis following catheterization, Vivelle dot 0.075 mg daily and Prometrium 200 mg p.o. HS. Status at Discharge Cognitive/behavioral status at discharge: oriented Functional status at discharge: independent ambulation Overall status at discharge: patient is progressing back to baseline Time Spent with Patient Time spent: Less than 30 minutes Exam Vital Signs (past 8 hours): - 06/18/23 05:26 06/18/23 07:55 Temperature 97.1 F L 96.9 F L Pulse Rate 107 H 98 H Respiratory Rate 22 22 Blood Pressure 98/62 105/66 Pulse Oximetry 99 98 Oxygen Flow Rate 0 0 Oxygen Delivery Method Room Air Oxygen Flow Rate 0 Const General: cooperative and comfortable Nutritional Appearance: average body habitus Orientation: alert and oriented x3 HENMT Head: normal to inspection, atraumatic and abrasion Ears: hearing grossly normal bilaterally Face and sinus: face symmetric Eyes General: appearance normal, both eyes and all related structures Conjunctivae: conjunctivae normal Sclera: sclerae normal EOM: EOM intact bilaterally Neck Neck: normal visual inspection Resp Effort & Inspection: normal respiratory effort and able to speak in complete sentences Auscultation: clear to auscultation bilaterally Cardio Rate: regular rate Rhythm: regular rhythm Heart Sounds: S1 normal, S2 normal and no murmurs GI Inspection: normal to inspection and incision (Surgical dressings clean and dry) Palpation: soft, no hepatosplenomegaly and tender (Mild, diffuse postsurgical tenderness) External Female Exam: other (No significant bleeding noted) Extrem General: no calf tenderness Psych Appearance: grossly normal Mental Status: mental status grossly normal Speech and Movement: speech and movement normal Mood: congruent mood Affect: normal affect Attitude: cooperative Thought Process: normal Thought Content: normal Judgment: judgment good Objective Labs 06/18/23 06:35 06/18/23 06:35 Labs: Laboratory Results - last 24 hr 06/18/23 06:35 WBC 7.8 RBC 4.78 Hgb 13.2 Hct 38.7 MCV 81.1 MCH 27.5 MCHC 34.0 RDW 15.4 H Plt Count 307 Neut % (Auto) 83.2 H Lymph % (Auto) 13.1 L [place] % (Auto) 3.6 Eos % (Auto) 0.0 L Baso % (Auto) 0.1 Neut # (Auto) 6500 Lymph # (Auto) 1000 L [place] # (Auto) 300 Eos # (Auto) 0 Baso # (Auto) 0 Sodium 137 Potassium 4.2 Chloride 108 H Carbon Dioxide 26 BUN 7 Creatinine 0.61 Estimated GFR > 60 BUN/Creatinine Ratio 11.5 Glucose 113 H Calcium 9.3 PFSH Medical History (Updated 05/25/23 @ 17:13 by Elizabeth Freed MD) Lumbar radiculopathy Lumbar spondylosis Myofascial pain Low back pain History of polyhydramnios PTSD (post-traumatic stress disorder) (~1999) Depression (~1999) Restless leg syndrome ADHD Foot pain (~2020) Carpal tunnel syndrome (~2017) Painful menstrual periods (~2019) Heavy menstrual period (~2020) Polyhydramnios depression Surgical History (Updated 06/16/23 @ 15:05 by Shandra Peck RN) History of endometrial ablation History of hysteroscopy (11/30/22) Anesthesia History of surgery [employer] teeth extracted Previous section Family History Father Diabetes mellitus Daughter Juvenile arthritis Son Hearing loss Nearsightedness Mother Depression Alcoholism Mental health problem Social History marital status: number of children: 3 household members: spouse, family and children lives independently: Yes housing: house pets and animals: Yes (horses) education level: vocational (some college, certificate programs) occupational status: unemployed and previously employed current occupational exposures/hazards: Yes special sarah needs: No seatbelt use: always water heater temp set < 120 deg: Yes working smoke detector in home: Yes fire extinguisher in home: Yes carbon monox detector in home: Yes firearms in home: Yes firearms unloaded and locked: Yes do you feel safe at home: Yes Smoking Status: Former smoker second hand exposure: No alcohol intake: former substance use type: marijuana (in the past, not recently and not while ) during the past year weight has: other (wide fluctuations since last ) well-balanced diet: daily or most days daily servings fruits/ve or more times/day caffeine: Yes (soft drinks in small quantities, well within 200mg limit) Type(s) of exercise: walking additional social history: Difficulty other children. Would really like to meet w/ IBCLC prior to delivery and would like Rx for hospital grade breast pump that she can have when she goes home from hospital after delivery. Discharge Assessment & Plan Assessment and Plan Assessment: Menorrhagia Failed endometrial ablation Polycystic ovarian syndrome Premenstrual dysphoric disorder Status post laparoscopic supracervical hysterectomy with bilateral salpingo oophorectomy Plan of Treatment: Routine postoperative care with follow-up planned 2 weeks following her surgery with Dr. Freed Discharge Plan Discharge Plan Patient Disposition: Home Provider Discharge Comment: Please review the written instructions you received when you were discharged from the hospital. Your follow-up appointment with Dr. Freed will be scheduled for 2 weeks after your surgery and we look forward to seeing you then. If however in the meanwhile you have any issues, concerns, or questions, please contact the office either by phone at [phone], or via the patient portal. Discharge orders & Medications Discharge Orders: Discharge (Order); Ordered 06/18/23 Ordered By: Cheng Canales Prescriptions: New oxycodone 5 mg Tablet 5 mg PO Q4HR PRN (Reason: Pain, Severe (7-10)) Qty: 20 0RF ciprofloxacin HCl [Cipro] 500 mg tablet 500 mg PO BID 5 Days Qty: 10 0RF estradiol [Vivelle-Dot] 0.075 mg/24 hr patch semiweekly 1 patch transdermal 2XW Qty: 8 12RF Rx Instructions: apply 1 patch for 3 days alternating with 1 patch for 4 days each week for 3 wks per 4-wk cycle progesterone micronized [Prometrium] 200 mg capsule 200 mg PO BEDTIME Qty: 30 12RF progesterone micronized [Prometrium] 200 mg capsule 200 mg PO BEDTIME Qty: 30 12RF Continued levothyroxine 137 mcg tablet 137 mcg PO DAILY Qty: 30 1RF Victoza 2-Sree 0.6 mg/0.1 mL (18 mg/3 mL) pen injector 0.6 mg SUBCUT DAILY Qty: 6 2RF ibuprofen 800 mg tablet 800 mg PO TID Qty: 90 2RF (DME) pen needle, diabetic [Novofine 32] 32 gauge x 1/4 needle See Rx Instructions .Route Qty: 100 0RF Rx Instructions: inject SQ daily atomoxetine [Strattera] 10 mg capsule 20 mg PO ONCE lidocaine 5 % adhesive patch,medicated 1 patch transdermal DAILY PRN (Reason: Pain (Scale Score 1-3)) gabapentin 100 mg capsule 100 mg PO TID Qty: 90 2RF Rx Instructions: 1 PO QHS x3 days If tolerated, 1 PO BID x3 days If tolerated, 1 PO TID Follow up/Referrals: Ewa Flowers PA-C [Primary Care Provider] - Diet/Activity/Treatments Diet: Diet as Tolerated Activity: As tolerated Other treatments: [id number] Tylenol and/or ibuprofen may be used for pain relief. Uhyi-mpb-[id number] stool softeners and/or MiraLax may be used as needed for constipation. Skin/Wound/Dressing Care Report to your healthcare provider any signs of infection, such as:: chills, fever, increased pain, unusual drainage and unusual redness Dressing: Dressings should be removed on the morning of 06/19/2023 Visit Report/Discharge Packet Instructions: DI for Hysterectomy, DI for Laparoscopy, DI for Prescription Opioid Use Stand Alone Forms: Surgery Discharge Print Language: Japanese Discharge Data Primary Care Provider: Ewa Flowers Attending Provider: Elizabeth Freed Quality VTE Deep Vein Thrombosis/Pulmonary Embolism Present on Admission: No
[2023-06-18] MEDS: DOCUSATE 100 MG CAPSULE 200 MG PO (09:09)
[2023-06-18 09:24] VITALS: O2SAT 98
--- NOTE | 2023-06-18 09:57 | PC.NURSE ---
Day shift: Paperwork signed and all questions answered. MD scripts sent to [facility] and Pt will orange picker. HAs all personal belongings. Spouse in room for teachings and will drive Pt home. Left unit via WC at approx 1010. Taken to car by AMAURY Walden. 4 lap sites remain CDI.
--- NOTE | 2023-06-18 10:14 | CM.DANOTE ---
Brief DCP Assessment note Pt is a 33yo F here following planned hysterectomy with Dr. Canales on 06.17.23. Pt is POD1. PCP [facility] medicaid LATIN AMERICAN STUDIES DIRECTOR reviewed EMR. Per chart review, pt medically cleared to dc home with family today. Per RN, pt eager to leave, spouse support at home. No CM needs anticipated. Pt left prior to being seen by this author. Plan: home with family today. No identified CM needs. CM team will continue to follow as needed. MAILE Godinez Discharge Planning/Care Management CM Discharge Assessment Start: 06/18/23 10:13 Freq: Status: Active Protocol: Document 06/18/23 10:13 SL (Rec: 06/18/23 10:14 [id number]) Discharge Planning Assessment Assigned Gusset Ripper MAILE Bravo DPOA/Assigned Designee Name Cricket Martin Contact Information [phone] Advance Directives? No History Provided By Patient,Medical Record Prior Living Arrangements House Household Members spouse,family,children Independent with ADL's Yes Is patient alert and oriented? Yes Barriers to Discharge No Discharge Plan Home Referrals Initiated None needed Whiteboard Updated in Patient Room with No name and ext. # of Gusset Ripper Comment pt left prior to being seen by this LAT[employer] STUDIES DIRECTOR Review Status In Process Next Review Type Continued Stay Review Pre-Anesthesia Assessment Start: 06/16/23 15:00 Freq: Status: Complete Protocol: Document 06/16/23 15:00 CAB (Rec: 06/16/23 15:05 CAB [id number]) Pre-Anesthesia Assessment Patient Information Reviewed Via Chart Review Primary Care Provider Ewa Flowers Seen Specialist in Last 12 Months Yes Specialist Seen Professor Of Business,Other Primary Language Khmer Upholstery Restorer Required No Height 165.1 cm Weight 129.274 kg Body Mass Index (BMI) 47.4 Hx Anesthesia Reactions No Hx Family Anesthesia Reaction No Hx Malignant Hyperthermia No Hx Blood Transfusion Reaction No Anesthesia Review Requested No Hand Tile Maker No alcohol intake former Smoking Status Former smoker how long ago did patient quit smoking 2018 Substance Use Type does not use Pain Present Pain Reported History of Falling (Recent or History of No ) Patient is completely paralyzed or No completely immobile Mental Status Oriented to own ability Is patient on oxygen? No Hx Sleep Apnea No Currently Taking a Beta Mayito No Anti-Coagulant Therapy No Has a Plywood Matcher No Cardiac Testing No Hx Pacemaker/ICD No Pacemaker Rep Required? No Urinary Catheter Present No Hx Urinary Self Catheterization No Diabetes No Patient No Hx Drug Resistant Organism No Presence of External or Internal Medical No Devices Received a COVID vaccine? No Marital Status Lives With spouse,family,children Patient Discharge Plan Description Return Home Advance Directives? No Power of Information Technology Architect No
== END 2023-06-18 10:04 | disposition home or self-care (01) ==
LOC: OR 12:47 → AC 12:50
PROVIDERS: Obstetrics & Gynecology; PCP Physician Assistant; Referring Provider Obstetrics & Gynecology; Visit Provider Obstetrics & Gynecology
PROC: 0UT94ZL Resection of Uterus, Supracervical, Percutaneous Endoscopic Approach (ICD-10-PCS; CPT 58542; principal; 2023-06-17 14:30)
DX: N93.9 Abnormal uterine and vaginal bleeding, unspecified (principal); N73.6 Female pelvic peritoneal adhesions (postinfective); K43.9 Ventral hernia without obstruction or gangrene; E28.2 Polycystic ovarian syndrome; N70.11 Chronic salpingitis; N83.8 Other noninflammatory disorders of ovary, fallopian tube and broad ligament; N83.12 Corpus luteum cyst of left ovary; N83.11 Corpus luteum cyst of right ovary
CPT/HCPCS: 58542; 36415; 80048; 81025; 85025; J0136; J0171; J0690; J1100; J1170; J1885; J2250; J2405; J2704; J2795; J3010

== ENCOUNTER 2024-07-30 19:04 | Emergency (ER) | payer OTHER, SELFPAY ==
[2023-06-17 19:59] VITALS: BMI 46.5
[2024-07-30 19:20] VITALS: BP 121/85; PULSE 95; RESP 18; TEMP 36.6; O2SAT 99; BMI 44.7
[2024-07-30 23:41] VITALS: PULSE 79; O2SAT 98
[2024-07-30 23:42] VITALS: BP 99/61; PULSE 86; RESP 16; O2SAT 98
[2024-07-31] VITALS: BP 94/64; PULSE 76; O2SAT 97
[2024-07-31 00:30] VITALS: BP 102/65; PULSE 78; O2SAT 97
--- NOTE | 2024-07-31 00:51 | ED_ITS ---
HPI - Back Pain/Injury General Chief Complaint: Back Pain/Injury Stated Complaint: back pain, lt foot pain Time Seen by Provider: 07/30/24 23:19 Source: patient History of Present Illness HPI Narrative: 34-year-old woman with a history of 2 years of back pain presents with exacerbation of her back pain and left ankle strain. She is feeling overwhelmed and frustrated with her lack of progress and finding answers with her back pain. She had an MRI about a year ago that showed a herniated disc. She was aware this herniated disc as early as high school and it has not changed. She states that after a with her 4th child she had a blood patch. Had not had the back pain prior to the blood patch and developed as the blood patch was being administered, the blood administration was discontinued early because of the pain. Pain has not resolved since that point. She has talked to her primary care physician, she has seen spine and sports marketing internship who felt that this was all related to the herniated disc. She has been to physical therapy and done all treatments for herniated disc with no resolution. She currently is taking 800 mg of ibuprofen 3 times a day. She has not appointment with a chronic pain clinic on August 08 and is hoping to discuss the possibility of arachnoiditis related to the blood patch 2 years ago with the onset of symptoms. She has talked to her psychiatrist who has recently prescribed Lyrica to help with pain modulation. She has lidocaine patches which provide minimal relief. She was seen at [facility] about a week ago and given 10 Percocet, she finds that this has helped with sleep, she does have 5 left still. She comes in today frustrated, hurting recognizing that she is a 34-year-old mother with 4 children the youngest is 2 and a puppy and she is barely able to get up and move and get out of bed. She is not having fevers or chills. No abdominal pain. Related Data Home Medications Medication Instructions Recorded Confirmed lidocaine 5 % topical patch 1 patch transdermal DAILY PRN Pain 09/03/22 09/16/23 (Scale Score 1-3) dextroamphetamine-amphetamine 7.5 PO 09/16/23 09/16/23 mg tablet Previous Rx's Medication Instructions Recorded levothyroxine 137 mcg tablet 137 mcg PO DAILY #30 tabs 03/16/22 ibuprofen 800 mg tablet 800 mg PO TID #90 tabs 04/20/23 progesterone micronized 200 mg 200 mg PO BEDTIME #30 caps 06/18/23 capsule (Prometrium) progesterone micronized 200 mg 200 mg PO BEDTIME #30 caps 07/22/23 capsule (Prometrium) estradiol 0.1 mg/24 hr semiweekly 1 patch transdermal 2XW #8 ea 11/29/23 transdermal patch pen needle, diabetic 32 gauge x #100 ea 02/18/24 1/ (BD Ultra-Fine Micro Pen Needle) semaglutide (weight loss) 0.5 0.5 mg (0.5 mL) SUBCUT QWEEK #2 mL 03/28/24 mg/0.5 mL subcutaneous pen injector (Wegovy) liraglutide 0.6 mg/0.1 mL (18 mg/3 1.8 mg (0.3 mL) SUBCUT DAILY #6 mL 05/12/24 mL) subcutaneous pen injector (Victoza 2-Sree) dexamethasone 4 mg tablet 10 mg (2.5 x 4 mg) PO DAILY #10 07/31/24 tabs oxycodone-acetaminophen 5 mg-325 1 tab PO Q6H PRN pain #14 tabs 07/31/24 mg tablet Allergies Allergy/AdvReac Type Severity Reaction Status Date / Time flaxseed Allergy Severe Anaphylaxis Verified 09/16/23 09:26 prednisone AdvReac Mild Hot Flashes Verified 09/16/23 09:26 Review of Systems Review of Systems Narrative: Pertinent positive and negative findings as per HPI Patient History Medical History Right hip pain Lumbar radiculopathy Lumbar spondylosis Myofascial pain Low back pain History of polyhydramnios PTSD (post-traumatic stress disorder) (~1999) Depression (~1999) Restless leg syndrome ADHD Foot pain (~2020) Carpal tunnel syndrome (~2017) Painful menstrual periods (~2019) Heavy menstrual period (~2020) Polyhydramnios depression Surgical History History of endometrial ablation History of hysteroscopy (11/30/22) Anesthesia History of surgery [place] teeth extracted Previous section Family History Father Diabetes mellitus Daughter Juvenile arthritis Son Hearing loss Nearsightedness Mother Depression Alcoholism Mental health problem Social History marital status: number of children: 3 household members: spouse, family and children lives independently: Yes housing: house pets and animals: Yes (horses) education level: vocational (some college, certificate programs) occupational status: unemployed and previously employed current occupational exposures/hazards: Yes special sarah needs: No seatbelt use: always water heater temp set < 120 deg: Yes working smoke detector in home: Yes fire extinguisher in home: Yes carbon monox detector in home: Yes firearms in home: Yes firearms unloaded and locked: Yes do you feel safe at home: Yes Smoking Status: Never smoker second hand exposure: No alcohol intake: former substance use type: marijuana (in the past, not recently and not while ) during the past year weight has: other (wide fluctuations since last ) well-balanced diet: daily or most days daily servings fruits/ve or more times/day caffeine: Yes (soft drinks in small quantities, well within 200mg limit) Type(s) of exercise: walking additional social history: Difficulty other children. Would really like to meet w/ IBCLC prior to delivery and would like Rx for hospital grade breast pump that she can have when she goes home from hospital after delivery. Smoking Status: Never smoker alcohol intake frequency: holidays/special occasions only Exam Initial Vital Signs Initial Vital Signs: Vital Signs Temperature 97.9 F 07/30/24 19:20 Pulse Rate 95 H 07/30/24 19:20 Respiratory Rate 18 07/30/24 19:20 Blood Pressure 121/85 07/30/24 19:20 Pulse Oximetry 99 07/30/24 19:20 Oxygen Delivery Method Room Air 07/30/24 19:20 General: Healthy appearing, in pain, frustrated getting to the point of despondency, BMI of 44.8 HEENT: Moist mucous membranes, normal sclera with reactive pupils, Respiratory: Full and symmetrical air movement Cardiac: Regular rate and rhythm no murmurs no bruits Skin: Warm and dry, no rashes Neurologic: Grossly neurologically intact with no obvious asymmetries or abnormalities Spine: She does not have any point tenderness along the lumbar spine. No evidence of infection or underlying tissue fluctuance Extremities: Lung the left ankle she has some swelling over the lateral malleolus extending toward the dorsum of the foot. No abrasions or contusion and she is neurovascularly intact Psych: Cooperative, appropriate insight and affect Course Orders Ordered: Discontinued Medications Dexamethasone (Dexamethasone 4 Mg Tablet) 12 mg PO NOW ONE Stop: 07/31/24 00:52 Last Admin: 07/31/24 00:54 Dose: 12 mg Documented By: SAMUEL Vital Signs Vital signs: Vital Signs - 8 hr 07/30/24 23:41 07/30/24 23:42 07/31/24 00:00 Pulse Rate 79 86 76 Respiratory Rate 16 Blood Pressure 99/61 Pulse Oximetry 98 98 97 Oxygen Delivery Method Room Air 07/31/24 00:00 07/31/24 00:30 07/31/24 00:30 Pulse Rate 78 Respiratory Rate Blood Pressure 94/64 102/65 Pulse Oximetry 97 Oxygen Delivery Method 07/31/24 01:00 07/31/24 01:00 Pulse Rate 76 Respiratory Rate 18 Blood Pressure 103/67 Pulse Oximetry 97 Oxygen Delivery Method Room Air MDM - Back Pain/Injury MDM Narrative Medical decision making narrative: 34-year-old woman emotionally and physically frustrated with her chronic pain issues for the last 2 years despite appropriate treatments, consults, studies etcetera. She is not quite sure where to turn and continues to have pain such that she is not able to participate meaningfully in her life. There was no evidence of fractures, cauda equina syndrome, epidural abscess, acute issue that would require emergent imaging today Encouraged her to discuss the arachnoiditis question with the pain specialist that she is seeing on the . Reassured her that the Lyrica started by her psychiatrist as inappropriate pillar in overall pain control. She is working on weight loss Encouraged her to continue the lidocaine patches the ibuprofen and we will give her couple of extra Percocet along with a very significant discussion regarding narcotics for chronic pain has very high risk for narcotic addiction. We discussed adding a brief course of dexamethasone to help with the inflammation and see if that might influence her pain at all. Finally, she has a mild left ankle strain and a stirrup ankle splint is placed for comfort. She is neurovascularly intact pre and post placement. Encouraged her to return to the ER if she has worsening symptoms Discharge Plan Departure Patient Disposition: Home Clinical Impression: Chronic back pain Qualifiers: Back pain location: low back pain Back pain laterality: unspecified Sciatica presence: unspecified whether sciatica present Qualified Code(s): M54.50 - Low back pain, unspecified Left ankle sprain Qualifiers: Encounter type: initial encounter Involved ligament of ankle: unspecified ligament Qualified Code(s): S93.402A - Sprain of unspecified ligament of left ankle, initial encounter Instructions: DI for Low Back Pain, DI for Ankle Sprain Activity Restrictions/Additional Instructions: I am sorry that you are continuing to suffer with all of these pain management issues I would recommend continuing all current management including the pregabalin, t.i.d. ibuprofen, lidocaine patches Please discuss the question of arachnoiditis with your pain specialty appointment on August 08 I have given you a ankle air strep to help support her left ankle, I believe you have a mild strain there were that will improve I have given you initial dose of dexamethasone in the emergency department we will give you 3 additional days. This is powerful anti-inflammatory medication to see if it helps influence your back pain in any way Finally, I have given you a small dose of Percocet. We had a long discussion regarding narcotics in chronic pain and very high-risk for developing addiction. I think it is appropriate T is 1 if it does help with sleep as sleep is going to be vital in overall recovery. If you find that you are getting worse or develop any new symptoms, please feel free to return to the emergency department for further evaluation. Prescriptions: New dexamethasone 4 mg tablet 10 mg PO DAILY Qty: 10 0RF oxycodone-acetaminophen 5-325 mg tablet 1 tab PO Q6H PRN (Reason: pain) Qty: 14 0RF No Action levothyroxine 137 mcg tablet 137 mcg PO DAILY Qty: 30 1RF ibuprofen 800 mg tablet 800 mg PO TID Qty: 90 2RF progesterone micronized [Prometrium] 200 mg capsule 200 mg PO BEDTIME Qty: 30 12RF estradiol 0.1 mg/24 hr patch semiweekly 1 patch transdermal 2XW Qty: 8 12RF (DME) pen needle, diabetic [BD Ultra-Fine Micro Pen Needle] 32 gauge x 1/4 needle See Rx Instructions .ROUTE .COMPLEX Qty: 100 0RF Dose Instruction: use with subcutaneous injections daily Rx Instructions: use with subcutaneous injections daily Wegovy 0.5 mg/0.5 mL pen injector 0.5 mg SUBCUT QWEEK Qty: 2 3RF liraglutide [Victoza 2-Sree] 0.6 mg/0.1 mL (18 mg/3 mL) pen injector 1.8 mg SUBCUT DAILY Qty: 6 4RF progesterone micronized [Prometrium] 200 mg capsule 200 mg PO BEDTIME Qty: 30 12RF lidocaine 5 % adhesive patch,medicated 1 patch transdermal DAILY PRN (Reason: Pain (Scale Score 1-3)) dextroamphetamine-amphetamine 7.5 mg tablet PO Referrals: Mikey Law DO [Primary Care Provider] - Stand Alone Forms: Patient Portal/API/Survey
[2024-07-31] MEDS: dexAMETHasone 4 MG TABLET 12 MG PO (00:54)
[2024-07-31 01:00] VITALS: BP 103/67; PULSE 76; RESP 18; O2SAT 97
== END 2024-07-31 01:16 | disposition home or self-care (01) ==
PROVIDERS: Emergency Provider Emergency Medicine; PCP Family Medicine
DX: S93.402A Sprain of unspecified ligament of left ankle, initial encounter (principal); M54.50 Low back pain, unspecified; G89.29 Other chronic pain; X58.XXXA Exposure to other specified factors, initial encounter
CPT/HCPCS: 29515; 99283